=== PATIENT | male | born 1970 | race Caucasian/White ===

== ENCOUNTER → 2016-12-13 | Outpatient (CLI) | payer OTHER ==
[2016-12-13 11:27] LABS: ALT 36 U/L (21-72); AST 24 U/L (17-59); Alkaline Phosphatase 105 U/L (38-126); Anion Gap 10 mmol/L; Bilirubin, Delta 0.3 mg/dL (0.0-0.2); Blood Urea Nitrogen 16 mg/dL (9-20); Calcium 10.1 mg/dL (8.4-10.2); Carbon Dioxide 27 mmol/L (22-30); Chloride 103 mmol/L (98-107); Glucose 93 mg/dL (74-99); Non-African American GFR(MDRD) >60 (>60 ml/min/1.73 sqM); Potassium 4.7 mmol/L (3.5-5.1); Sodium 140 mmol/L (137-145); Total Bilirubin 0.5 mg/dL (0.2-1.3); Total Protein 7.9 g/dL (6.3-8.2)
== END | disposition home or self-care (01) ==
LOC: LABWHC1 09:51
PROVIDERS: ATTEND Psychiatry & Neurology Psychiatry
DX: F11.20 Opioid dependence, uncomplicated (principal); Z79.899 Other long term (current) drug therapy
CPT/HCPCS: 36415; 80053; 80306; 82248; 84439; 84443

== ENCOUNTER → 2017-03-20 | Outpatient (CLI) | payer OTHER ==
--- NOTE | 2017-03-20 21:23 | XR ---
Cervical spine HISTORY: Neck pain and stiffness, remote trauma 5 views of the cervical spine and 6 images No comparisons There is spondylosis with loss of disc height especially at C3-4, C6-7, spondylosis also at C4. Cervi kylee vertebral bodies show preserved height, alignment, and bone mineralization. Some foraminal encroa chment present on the left at C5-6 and on the right at C3-4, C5-6 and C6-7 due to lateral extension o f endplates. IMPRESSION: Degenerative disc disease, cervical MRI may be of benefit.
--- NOTE | 2017-03-20 21:25 | XR ---
Left knee HISTORY: Left knee pain 3 views of the left knee, no comparisons Bone mineralization, joint spaces and alignment are maintained. Suprapatellar increased density sugge sts joint effusion. IMPRESSION: No acute fracture or dislocation. Joint effusion. Knee MRI may be of benefit.
== END | disposition home or self-care (01) ==
LOC: RADXRMAIN 15:19
PROVIDERS: ATTEND Internal Medicine
DX: M50.30 Other cervical disc degeneration, unspecified cervical region (principal); M25.462 Effusion, left knee
CPT/HCPCS: 72050

== ENCOUNTER → 2017-04-07 | Outpatient (CLI) | payer OTHER ==
--- NOTE | 2017-04-07 23:05 | MR ---
EXAMINATION TYPE: MR knee LT wo con DATE OF EXAM: 04/07/2017 COMPARISON: NONE HISTORY: Left Knee pain x5 years TECHNIQUE: Multiplanar, multisequence imaging of the left knee is performed without IV contrast. FINDINGS: There is a mild knee joint effusion. The posterior cruciate ligament is intact. There is complete dis ruption of the anterior cruciate ligament. The collateral ligaments appear intact. There is no evidence of a fracture. The lateral meniscus appe ars intact. There is some thinning of the medial meniscus with horizontal defect in the anterior horn medial meniscus. IMPRESSION: Complete tear of the anterior cruciate ligament. Horizontal tear of the anterior horn of the medial m eniscus. Degenerative thinning of the medial meniscus. There is a 5 mm degenerative cyst at the base of the tibial spines. Knee joint effusion.
--- NOTE | 2017-04-07 23:13 | MR ---
EXAMINATION TYPE: MR cervical spine wo con DATE OF EXAM: 04/07/2017 COMPARISON: NONE HISTORY: Neck pain 11/18/2016, Previous XRays on PACS TECHNIQUE: Multiplanar, multisequence images of the cervical spine were acquired. The cervical vertebra have normal alignment. Disc spaces are fairly normal. There is some decreased s ignal in the disks throughout the cervical spine. Cervical spinal cord has fairly normal signal patte rn without evidence of edema. Brainstem is intact. There are small posterior disc herniations at C5-6 and C6-7. The canal measures 8 to 9 mm at C5-6. I see no significant spinal stenosis. There is no pa raspinal mass. The posterior elements appear intact. IMPRESSION: Minor degenerative disc signal changes. Small posterior disc herniations at C5-6 and C6-7 wo cervical spine significant spinal stenosis. There is mild right side neural foraminal impingement due to uncovertebral spurring at C6-7.
== END | disposition home or self-care (01) ==
LOC: RADMRIMAIN 19:26
PROVIDERS: ATTEND Internal Medicine
DX: M50.222 Other cervical disc displacement at C5-C6 level (principal); M47.812 Spondylosis without myelopathy or radiculopathy, cervical region; S83.512A Sprain of anterior cruciate ligament of left knee, initial encounter; S83.242A Other tear of medial meniscus, current injury, left knee, initial encounter
CPT/HCPCS: 72141

== ENCOUNTER 2017-05-07 21:25 | Emergency (ER) | payer OTHER ==
[2017-05-07 21:46] VITALS: BP 140/82; PULSE 69; RESP 16; TEMP 97
[2017-05-08] MEDS ORDERED: MORPHINE SULFATE 4 MG/ML SYRINGE IVP STA (00:01)
--- NOTE | 2017-05-08 00:06 | ED ---
General Adult HPI - General Chief complaint: Dental/Oral Stated complaint: Dental Time Seen by Provider: 05/07/17 23:53 Source: patient, RN notes reviewed Mode of arrival: ambulatory Limitations: no limitations - History of Present Illness Initial comments: 41 sexual male presents with right upper tooth pain. Patient has had pain in this tooth for the past several days. He was seen by his dentist and started on amoxicillin for dental abscess. Patient has been worsening over the past 3 days. He has been taking Motrin and amoxicillin. Denies any facial swelling. Denies fever, has had some chills. Pain is severe in nature, localized to this one tooth which is #7. - Related Data Previous Rx's Medication Instructions Recorded Clindamycin [Cleocin] 150 mg PO Q6H #28 capsule 05/08/17 HYDROcodone/APAP 5-325MG [[place] 1 tab PO Q6HR PRN #12 tab 05/08/17 5-325] Ibuprofen [Motrin] 600 mg PO Q8HR PRN #24 tab 05/08/17 Allergies Allergy/AdvReac Type Severity Reaction Status Date / Time No Known Allergies Allergy Verified 05/07/17 21:46 Review of Systems ROS Statement: Those systems with pertinent positive or pertinent negative responses have been documented in the HPI. ROS Other: All systems not noted in ROS Statement are negative. Past Medical History Past Medical History: No Reported History History of Any Multi-Drug Resistant Organisms: None Reported Past Surgical History: Ear Surgery, Orthopedic Surgery Additional Past Surgical History / Comment(s): left knee, right ear Past Psychological History: No Psychological Hx Reported Smoking Status: Current every day smoker Past Alcohol Use History: None Reported Past Drug Use History: None Reported General Exam Limitations: no limitations General appearance: alert, in no apparent distress Head exam: Present: atraumatic, normocephalic Eye exam: Present: normal appearance, PERRL ENT exam: Present: other (Tenderness to percussion over #7 tooth, no apparent abscess or cellulitis) Neck exam: Present: normal inspection, tenderness. Absent: lymphadenopathy Respiratory exam: Present: normal lung sounds bilaterally, respiratory distress Cardiovascular Exam: Present: regular rate, normal rhythm GI/Abdominal exam: Present: soft. Absent: distended, tenderness Course Vital Signs 05/07/17 21:43 Temperature 97 F L Pulse Rate 69 Respiratory 16 Rate Blood Pressure 140/82 O2 Sat by Pulse 100 Oximetry Medical Decision Making - Medical Decision Making 47 yo. male with persistent tooth pain. Pain is at #7. He has been on amoxicillin, he will be switched to clindamycin, he's given additional pain medication. He will follow-up with his dentist tomorrow. Disposition Clinical Impression: Dental abscess Disposition: HOME SELF-CARE Condition: Good Instructions: Dental Abscess (ED) Additional Instructions: Please follow up with her dentist the next 24-48 hours Prescriptions: Clindamycin [Cleocin] 150 mg PO Q6H #28 capsule HYDROcodone/APAP 5-325MG [[place] 5-325] 1 tab PO Q6HR PRN #12 tab PRN Reason: Pain Ibuprofen [Motrin] 600 mg PO Q8HR PRN #24 tab PRN Reason: Pain Referrals: Scott Sherman MD [Primary Care Provider] - 1-2 days Time of Disposition: 00:05
[2017-05-08] MEDS ORDERED: MORPHINE SULFATE/PF 10MG/10ML VL IVP STA (00:12)
== END 2017-05-08 00:29 | disposition home or self-care (01) ==
LOC: EC 21:25
DX: K04.7 Periapical abscess without sinus (principal); R06.03 Acute respiratory distress; F17.200 Nicotine dependence, unspecified, uncomplicated
CPT/HCPCS: 99282; 96374; J2270

== ENCOUNTER 2017-10-10 17:27 | Emergency (ER) | payer OTHER ==
[2017-10-10 17:40] VITALS: RESP 18
[2017-10-10] MEDS ORDERED: ACET/COD 300 MG/30 MG STARTER PACK 6 TAB BTL PO STA (19:03)
--- NOTE | 2017-10-10 19:10 | ED ---
ENT HPI - General Chief complaint: Dental/Oral Stated complaint: Dental pain Time Seen by Provider: 10/10/17 18:45 Source: patient, RN notes reviewed Mode of arrival: ambulatory Limitations: no limitations - History of Present Illness Initial comments: This is a 47-year-old male who presents to the emergency department with chief complaint of dental pain. Patient states that he was seen at the dentist this morning and was told that his left front tooth will need a root canal. Patient states that he was discharged home with antibiotics and Motrin. Patient states that he is in severe pain and the Motrin is not helping. He states that he was told there is an abscess underneath his crown. States he has to make an appointment with an business intelligence developer. He denies any fevers or chills, chest pain or shortness of breath, abdominal pain, nausea or vomiting. - Related Data Previous Rx's Medication Instructions Recorded Clindamycin [Cleocin] 150 mg PO Q6H #28 capsule 05/08/17 HYDROcodone/APAP 5-325MG [[place] 1 tab PO Q6HR PRN #12 tab 05/08/17 5-325] Ibuprofen [Motrin] 600 mg PO Q8HR PRN #24 tab 05/08/17 Allergies Allergy/AdvReac Type Severity Reaction Status Date / Time No Known Allergies Allergy Verified 10/10/17 17:40 Review of Systems ROS Statement: Those systems with pertinent positive or pertinent negative responses have been documented in the HPI. ROS Other: All systems not noted in ROS Statement are negative. Past Medical History Past Medical History: No Reported History History of Any Multi-Drug Resistant Organisms: None Reported Past Surgical History: Ear Surgery, Orthopedic Surgery Additional Past Surgical History / Comment(s): left knee, right ear Past Psychological History: No Psychological Hx Reported Smoking Status: Current every day smoker Past Alcohol Use History: None Reported Past Drug Use History: None Reported General Exam - General Exam Comments Initial Comments: General: Awake and alert, well-developed; in no apparent distress. HEENT: Head atraumatic, normocephalic. Pupils are equal, round and reactive to light. Extraocular movements intact. Oropharynx moist without erythema or exudate. Dental bridge noted to teeth 8 and 9. No masses or areas of fluctuance along the gumline. No tenderness. Neck: Supple. Normal ROM. Cardiovascular: Regular rate and rhythm. No murmurs, rubs or gallops. Chest symmetrical. Respiratory: Lungs clear to auscultation bilaterally. No wheezes, rales or rhonchi. Normal respiratory effort with no use of accessory muscles. Musculoskeletal: Normal ROM, no tenderness bilateral upper and lower extremities. Ambulating normally. Skin: [place], warm and dry without rashes or lesions. Neurological: Alert and oriented x3. CN II-XII grossly intact. Speech is fluent and answers are appropriate. No focal neuro deficits. Psychiatric: Normal mood and affect. No overt signs of depression or anxiety noted. Limitations: no limitations Course Vital Signs 10/10/17 17:38 Temperature 97.5 F L Pulse Rate 57 L Respiratory 18 Rate Blood Pressure 121/82 O2 Sat by Pulse 99 Oximetry Medical Decision Making - Medical Decision Making This is a 47-year-old male who presents to the emergency department with chief complaint of dental pain. Patient was seen at his dentist earlier today and was told he had a dental abscess and will need a root canal of tooth #9. Patient does have a bridge in place. He states he was prescribed amoxicillin and ibuprofen but that his pain is not controlled. MAPS was run and patient is not currently prescribed any controlled substances. He will be provided with the Tylenol with Codeine starter pack. Opiate start talking form is completed and patient has signed. Vitals are stable and he is in no acute distress. He will be discharged home at this time. He is in agreement and voices understanding. All questions were answered. Disposition Clinical Impression: Toothache Disposition: HOME SELF-CARE Condition: Good Instructions: Dental Abscess (ED), Toothache (ED), Acetaminophen/Codeine (By mouth) Additional Instructions: Please take medications as prescribed. Please follow up with primary care provider within 1-2 days. Return to emergency department if symptoms should worsen or any concerns arise. Is patient prescribed a controlled substance at d/c from ED?: No Referrals: Scott Sherman MD [Primary Care Provider] - 1-2 days Time of Disposition: 19:12
[2017-10-10 19:24] VITALS: BP 127/80; PULSE 69; TEMP 97.3
== END 2017-10-10 19:24 | disposition home or self-care (01) ==
LOC: EC 17:27
DX: K08.89 Other specified disorders of teeth and supporting structures (principal); F17.200 Nicotine dependence, unspecified, uncomplicated
CPT/HCPCS: 99282